=== PATIENT | female | born 1960 | race Caucasian/White ===

== ENCOUNTER 2024-06-30 11:53 | Emergency (ER) | payer OTHER ==
[~2024-06-30] VITALS: Ht 165.1 cm; Wt 83.9 kg
[2024-06-30 11:58] VITALS: O2SAT 96
== END 2024-06-30 13:34 | disposition home or self-care (01) ==
LOC: ER 11:53
DX: S20.212A Contusion of left front wall of thorax, initial encounter (principal); Z98.890 Other specified postprocedural states; W01.0XXA Fall on same level from slipping, tripping and stumbling without subsequent striking against object, initial encounter; Y93.89 Activity, other specified; Y92.89 Other specified places as the place of occurrence of the external cause; Y99.8 Other external cause status
CPT/HCPCS: 71250; 93005; A4606; A4663